=== PATIENT | female | born 1990 | race Caucasian/White ===

== ENCOUNTER 2016-08-20 01:32 | Emergency (ER) | payer OTHER ==
[~2016-08-20] VITALS: Ht 157.5 cm; Wt 71.4 kg
[2016-08-20 01:35] VITALS: BP 116/71; PULSE 96; RESP 16; O2SAT 97
--- NOTE | 2016-08-20 02:11 | ED.REPORT ---
HPI-Dyspnea / Wheezing Date of Service Aug 20, 2016 ED Provider: Dr. Cooley Pt is a 25 y/o 36.4 wk female presenting to the ED c/o mostly dry cough onset today. She c/o associated mild inaudible wheezing, SOB, mild sore throat. She has chronic nasal congestion caused by a likely deviated septum but otherwise has no history of respiratory diseases. She denies fever, chills, N/V/ D, respiratory distress. Nursing Notes Stated Complaint: COUGH, SHORT OF BREATH Chief Complaint: Respiratory Complaints Nursing Notes Reviewed: Yes Allergies: Coded Allergies: No Known Allergies (Unverified , 08/20/16) General Time Seen by MD: 02:10 Chief Complaint Shortness of breath Hx Obtained From: Patient Arrived By: Walk-in Onset Occurred: 13 - 16 hours ago Symptom Duration: Since onset Severity: Current: No pain currently Severity: Maximum: No pain Similar Sx Previous: No Risk Factors PE Risk Stratification Risk factors reviewed PERC Rule Pretest under 15%, All PERC criteria "No" Well's Criteria for PE Well's PE Score: 0-2 pts (low risk 3.6%) Past Medical History Past Medical History None reported Past Surgical History None reported Smoking History Unknown if Ever Smoker Social History Alcohol Use: Denies alcohol use Drug Use: Denies drug use Ambulatory Status Independent Review of Systems Constitutional: Denies: Chills, Fever Respiratory: Reports: Non-productive cough, Shortness of breath, Wheezing Cardiovascular: Denies: Chest pain Complete sys rev & neg: except as marked. GI: Denies: Abdominal pain, Diarrhea, Nausea, Vomiting Female: Reports: Physical Exam Initial Vital Signs Vital Signs (First) Date Time Temp Pulse Resp B/P Pulse Ox O2 Delivery O2 Flow Rate FiO2 08/20/16 01:35 36.1 96 16 116/71 97 Room Air Initial VS: Reviewed, Vital signs normal Head / Eyes: Atraumatic, Normocephalic, PERRL ENT: Mucous membranes moist, Conjunctiva normal, No scleral icterus Neurologic: Alert, Oriented, Nonfocal Psychiatric: Mood/affect normal, Behavior normal, Normal thought content General/Constitutional: Awake, Alert, No acute distress, Cooperative, Not toxic appearing Neck: Atraumatic, Supple, No meningismus, Full range of motion Respiratory / Chest: Atraumatic, Breath sounds NL, Breath sounds = bilat, No respiratory distress, No rales, No rhonchi, No wheezing, No retractions, No stridor, No chest tenderness, No chest wall deformity, No crepitus Cardiovascular: Heart rate NL, Regular rhythm, Heart sounds NL, No gallop, No murmurs, No rubs, Cap refill not delayed, Peripheral circulation NL Abdomen: Atraumatic, Soft Gravid - 3rd trimester Skin: Atraumatic, Color NL, Warm, Dry Cystic acne on chin Interpretation & Diagnostics Lab Results Interpretation Test 08/20/16 02:00 Hold Urine Received (Received) Re-Eval/Medical Decision Med Decision/Clinical Course 25-year-old female at 36.4 weeks in an uncomplicated presents with some dyspnea and a feeling of tightness. No evidence of more serious bacterial illness. She is not hypoxic and not tachycardic. No wheezes are heard. There are no focal changes and breath sounds. Doubt PE or pneumonia. She was discharged home with a diagnosis of viral upper respiratory infection. Re-Evaluation/Progress : Time of Eval: 02:46 Re-Evaluation/Progress Note: Pt rechecked. Informed pt of plan for treatment. Pt understands and agrees with plan for treatment. F/U instructions and RTER warnings given. All questions addressed. Counseled Regarding: Diagnosis, Need for follow-up, When/why to return to ED Discharge & Departure Impression: Primary Impression: URI (upper respiratory infection) URI type: unspecified URI Qualified Code: J06.9 - Acute upper respiratory infection, unspecified Additional Impression: Weeks of gestation: 36 weeks Qualified Code: Z3A.36 - 36 weeks gestation of Disposition: Home Discharge Condition All VS Reviewed: Yes Condition: Stable Patient Instructions: Upper Respiratory Infection (ED) Additional Instructions: This appears to be of viral respiratory infection. No evidence of a bacterial infection requiring antibiotic treatment. No evidence of asthma-type symptoms requiring an inhaler. Use Tylenol but avoid other [id number] cold preparations. Referrals: Pelon Beltre ND Attestation Portions of this note were transcribed by Marky Whitley. I, Dr. Cooley personally performed the history, physical exam and medical decision-making; I reviewed and confirmed the accuracy of the information in the transcribed note. Signed by Lala Ang, 08/20/16 - [id number] copies to: Pelon Beltre ND, Howard L MD Aug 20, 2016 02:11 MARKY WHITLEY Aug 20, 2016 02:17
== END 2016-08-20 03:30 | disposition home or self-care (01) ==
LOC: SED 01:32
DX: O99.513 Diseases of the respiratory system complicating pregnancy, third trimester (principal); J06.9 Acute upper respiratory infection, unspecified; J34.89 Other specified disorders of nose and nasal sinuses; Z3A.36 36 weeks gestation of pregnancy

== ENCOUNTER 2016-08-20 15:15 | Emergency (ER) | payer OTHER ==
[~2016-08-20] VITALS: Ht 157.5 cm; Wt 71.4 kg
[2016-08-20 15:17] VITALS: BP 120/80; PULSE 117; RESP 16; O2SAT 99
== END 2016-08-20 15:36 | disposition left against medical advice (07) ==
LOC: SED 15:15
DX: R05 Cough (principal); Z53.21 Procedure and treatment not carried out due to patient leaving prior to being seen by health care provider

== ENCOUNTER 2016-09-12 08:55 | Inpatient (IN) | payer OTHER ==
[~2016-09-12] VITALS: Ht 157.5 cm; Wt 71.2 kg
[2016-09-12] MEDS ORDERED: Lactated Ringer's 1,000 ML IV PRN ×2 (09:16→12:42)
[2016-09-12] MEDS ORDERED: Sodium Chloride LOK Flush 10 mL Syringe IVFLUSH PRN (09:20)
[2016-09-12] MEDS ORDERED: Carboprost 250 mCg/mL Inj IM PRN ×2 (09:20→17:25)
[2016-09-12] MEDS ORDERED: Oxytocin 30 Units/500 mL LR 30 UNITS in IV Premix 1 EACH IV PRN (09:20)
[2016-09-12] MEDS ORDERED: Hemorrhage Kit, Post Partum XX ONE ×3 (09:20→17:25)
[2016-09-12] MEDS ORDERED: Oxytocin 10 Unit/mL Inj IM PRN ×2 (09:20→17:25)
[2016-09-12] MEDS ORDERED: Methylergonovine 0.2 mg/mL Inj IM PRN ×2 (09:20→17:25)
[2016-09-12] MEDS ORDERED: Lactated Ringer's 500 ML IV ONE (09:24)
[2016-09-12] MEDS ORDERED: Lactated Ringer's 1,000 ML IV SCH ×2 (09:24→17:24)
[2016-09-12] MEDS ORDERED: EPHEDrine Sulfate 50 mg/mL Inj IVPUSH PRN (09:25)
[2016-09-12] MEDS ORDERED: fentaNYL 2 mCg/mL-Bupiv 0.125% 100 ML EPIDURAL SCH (09:25)
[2016-09-12] MEDS ORDERED: Atropine 1 mg/10 mL (Code) Syringe IVPUSH PRN (09:25)
[2016-09-12 09:31] LABS: Mean Corpuscular Hemoglobin 26.4 pg (27.0-35.0); Mean Corpuscular Volume 81.9 fL (81-100)
--- NOTE | 2016-09-12 11:48 | PCM.HPANE ---
Patient Data Date of Service: Sep 12, 2016 Surgeon Admitting Provider:Lacho Nagy MD Attending Provider:Lacho Nagy MD Primary Care Physician:Pelon Beltre ND Other Provider: Reason for Visit Term Early Labor TERM EARLY LABOR Ht/WT & BMI Height (Centimeters): 157 Weight (Kilograms): 71.2 Body Mass Index 28.7 Allergies Coded Allergies: No Known Allergies (Unverified , 08/20/16) Diabetes History Hx Diabetes?: No MRSA MRSA: No Medications Hypertension Medication: No Home Meds Incl Beta Tiffanie: No History History of ENT Problems?: No Hx of Heart Problems?: No Cardiovascular History: Denies:: Congestive Heart Failure Hypertension Hx of Respiratory Problem?: No Respiratory History: Denies:: Tuberculosis Hx Neurologic Problems?: No Hx of GI Problems?: No Hx of Problems?: No Female Hx: Positive for:: Currently Hx Musculoskeletal Problems?: No Hx of Psycho/Social Problems?: No Hx Surgeries?: No Hx Diabetes: No Hx Alcohol Use: NoHx Substance Use: No Smoking Status: Unknown if Ever Smoker Stop/Bang LEORA Risk Assessment: Low Risk, <3 Yes Risk Assessment Category Category 1A: Patient has history of documented sleep apnea, and HAS NOT received any narcotic, sedative or anesthesia administration during this stay. Category 1B: Patient has history of documented sleep apnea, and HAS received any narcotic , sedative or anesthesia administration during this stay Category 2: Patient has SUSPECTED Obstructive Sleep Apnea, and HAS received any narcotic , sedative or anesthesia administration during this stay. Category 3: Patient has SUSPECTED Obstructive Sleep Apnea and HAS NOT received narcotic, sedative or anesthesia administration during this stay. Category 4: Outpatient in Procedural Areas with known sleep apnea or who screen positive for High Risk via the STOP/BANG questionnaire. Exam Exam General Appearance: Alert, Oriented X3, Cooperative HEENT/AIRWAY: Neck Movement Lungs: Normal Air Movement Heart: Other (tachycardic) Meds/Labs/Diagnostics Labs Test 09/12/16 09:20 White Blood Count 12.4th/mm3 (3.8-10.1) Red Blood Count 4.25mil/mm3 (3.90-5.20) Hemoglobin 11.2g/dL (12.0-15.6) Hematocrit 34.8% (35.0-46.0) Mean Corpuscular Volume 81.9fL (81-100) Mean Corpuscular Hemoglobin 26.4pg (27.0-35.0) Mean Corpuscular Hemoglobin Concent 32.2% (32.0-37.0) Red Cell Distribution Width 14.6% (12.3-15.4) Platelet Count 345bil/L (150-400) Plan Impression Patient chart reviewed, patient interviewed and anesthestic plan with risks, benefits, and alternatives discussed, and informed consent obtained. NPO Status: OB Protocol ASA Physical Status: ASA1 Normal Healthy Anesthetic Plan: Epidural Bene/Risks/Altern/Consents: Yes HP Complete Prior to Induction: Yes Daniel Vogt MD Sep 12, 2016 09:41
[2016-09-12] MEDS: Ondansetron 2 mg/mL 2 mL Inj IVPUSH PRN ×2 (11:53→16:16)
[2016-09-12] MEDS ORDERED: oxyCODONE-Acetamin 5-325 mg Tablet PO PRN (17:25)
--- NOTE | 2016-09-12 18:08 | PCM.ANEP1 ---
Post Anesthesia Phase 1 PACU Phase 1 Assessment Date of Service: Sep 12, 2016 Vital Signs See OB documentation Anesthetic Administered: Epidural Level of Alertness: Awake, talking LEIGH's with Equal Strength: Yes Pain: No Nausea or Vomiting: No Oxygen Delivery: Room Air Lungs: Normal Air Movement Daniel Vogt MD Sep 12, 2016 18:08
--- NOTE | 2016-09-12 18:09 | PCM.ANEP2 ---
Post Anesthesia Evaluation ASA/CMS Post Anesthesia Date of Service: Sep 12, 2016 VS in Patient's Normal Range?: Yes Resp Stable; Airway Patent?: Yes CV Function & Hydration Stable: Yes Mental Status Recovered?: Yes Pain control Satisfactory?: Yes N/V Control Satisfactory?: Yes Daniel Vogt MD Sep 12, 2016 18:09
[2016-09-12] MEDS: Witch Hazel-Glycerin Pads TOPICAL PRN (18:40)
[2016-09-12] MEDS: LANOlin HPA 7 Gm Ointment TOPICAL PRN (18:41)
[2016-09-12] MEDS: Benzocaine (Dermoplast) 20% 60 Gm Spray TOPICAL PRN (18:41)
--- NOTE | 2016-09-12 21:01 | OP ---
[address] [address] OPERATIVE REPORT PATIENT: NENITA FUNES : 1990 MR#: [id number] ADMIT: 09/12/2016 JOB ID: [id number] DATE OF SURGERY: 09/12/2016 SURGEON: Lacho Nagy MD PREOPERATIVE DIAGNOSIS(ES): POSTOPERATIVE DIAGNOSIS(ES): DELIVERY NOTE: Please see my H and P for her presenting circumstances. Her labor progressed nicely and comfortably after her epidural was placed. heart tracing remained nice and reactive without concern. She eventually was noted to be completely dilated at 1634, and so I was called to attend the delivery. Mom started pushing at approximately 4:52 with the baby's head in an occiput anterior position with excellent epidural anesthesia. The baby's head delivered, and then there was no nuchal cord noted. Then the rest of the baby delivery was completed at 4:57 over an intact perineum. The baby was placed on mom's tummy, and approximately 60 seconds was waited, and then the cord was clamped and cut. The placenta delivered spontaneously and intact at 5:01. Examination of the cervix revealed no lacerations, and it was not actively bleeding. Her perineum showed no evidence of any significant lacerations at all. Estimated blood loss was 250 cc. There were no complications. Delivery was of a baby boy with Apgars of 8 and 9. Weight is still pending. The patient is doing very well, and we will order routine care.
--- NOTE | 2016-09-12 23:00 | HP ---
[address] [address] HISTORY AND PHYSICAL PATIENT: NENITA FUNES : 1990 MR#: [id number] ADMIT: 09/12/2016 JOB ID: [id number] CHIEF COMPLAINT: I broke my water. HISTORY OF PRESENT ILLNESS: This is a 25-year-old obstetrical patient who presents to labor and delivery complaining that she broke her water at six this morning and started having contractions shortly after that. She is an obstetrical patient at [facility] but decided to come up here for her labor and delivery because we provide epidural anesthesia and she would like. I was contacted because I was the next doctor on the no doc call list and I have come and interviewed the patient, and am overseeing her labor care. She is a 25-year-old, 2, para 1, with EDC of September 13, 2016, based on last menstrual period of December 08, 2015. This was verified with early ultrasound and again at 20 weeks confirmed. She had been doing reasonably well with no signs of labor at all until this morning when she suddenly began to feel liquid coming from her vagina that was clear, and shortly after that she started having contractions so she came in to be evaluated. heart tracing is reactive and she is found to be 4 cm, 100% effaced, -3 station with the baby in a vertex position ada about every 3-4 minutes or so, and so she was admitted for expectant management. PAST MEDICAL HISTORY: Her course has been unremarkable at the [facility]. Her maternal blood type is A-negative. She did get a RhoGAM shot on August 22. Her antibody screen was negative initially, as well as negative at 28 weeks. Hematocrit was normal at 40.4. Pap was normal. GC and Chlamydia were negative. She is rubella immune. RPR was nonreactive. Hepatitis B and HIV were negative. Diabetic screen at 28 weeks was 115. Her group B strep was negative at 37 weeks. course has only been complicated by inadequate weight gain. She has gained about 15 pounds. PAST OBSTETRICAL HISTORY: Patient had a spontaneous vaginal delivery about two and half years ago at 38 weeks, and that was complicated with -induced hypertension for which she was induced at 38 weeks, and ended up having a 7 pound 10 ounce baby girl without any significant problems. This is not seeing any significant hypertension or evidence of preeclampsia. PAST MEDICAL HISTORY: Significant for depression in the past with some sort of suicide attempt in 2010. The patient denies ever being on medications for depression. She also has history of some sort of atopic dermatitis and seasonal allergies. Otherwise, her medical history is unremarkable. SURGICAL HISTORY: Negative. FAMILY HISTORY: Noncontributory. ALLERGIES: The patient has no known drug allergies. CURRENT MEDICATIONS: Include vitamins, otherwise, on no regular medications at the present time. SOCIAL HISTORY: Patient lives in [place] with her 2-year-old daughter with some friends, as well as her significant other. 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 She denies history of smoking and denies alcohol use or drug use. REVIEW OF SYSTEMS: The patient recently has had sinusitis and is still congested and coughing, although has had no fevers. She has just finished a course of amoxicillin a couple of days ago. Denies any chest pain, palpitations or shortness of breath. No abdominal pain, other than the contractions. No swelling in her feet. She has felt the baby moving every day. No blurry vision or significant headaches. OBJECTIVE: Well-developed, well-nourished woman in no apparent distress who is very comfortable now with an epidural in place. Her vital signs are normal. Lungs are clear to auscultation bilaterally with good air movement. No wheezes are heard. Heart is regular rate and rhythm. No significant murmurs heard. Abdomen is gravid, otherwise benign. She has normoactive bowel sounds. Extremities: No cyanosis, clubbing or edema. Most recent cervical exam about an hour ago found her to be 6-7 cm, 100% effaced, -3 station, and heart tracing remains reactive with contractions every 4-5 minutes that are regular. ASSESSMENT AND PLAN: Intrauterine at term, in labor with premature rupture of membranes that has resulted in her going into labor. She is being admitted for routine expectant management. She asked for an epidural and this was placed successfully and she is very comfortable at the present time. We will provide routine labor management. Will plan on routine labor management. I discussed routine expectant management issues and procedures. Also, discussed potential complications and the usual obstetrical procedures to address them, but also the possible need for surgical care if a section becomes needed. I also discussed the possible need for assistance with vacuum extraction and its associated potential complications. All of her questions were answered, she expressed understanding of these issues, and is willing to proceed.
[2016-09-13 06:51] LABS: Mean Corpuscular Hemoglobin 26.7 pg (27.0-35.0); Mean Corpuscular Volume 83.2 fL (81-100)
[2016-09-13] MEDS: Sodium Chloride LOK Flush 10 mL Syringe IVFLUSH SCH ×2 (08:30→16:30)
--- NOTE | 2016-09-13 09:21 | NUR ---
received social work referral. advised DOOR ATTENDANT.
--- NOTE | 2016-09-13 12:19 | NUR ---
Social Work Note: Initial Assessment D/A; Pt is a 25 year old female who gave to BB on 09/12/2016. Pt reported that she currently lives with friends and her 2 year old daughter in [place] and is planning to return home with BB upon discharge. Pt indicated that SHAINA is Dayo Wolff. Pt explained that SHAINA suffered a TBI about a year ago, which left him with some cognitive and memory deficits. SHAINA is reportedly on disability and is living with his mother who is his primary insulation supervisor. Pt reported that SHAINA is supportive and willing to assist in any way he can in caring for BB. Pt indicated that she is currently enrolled in [facility] and is receiving food stamps and TANF through [facility]. BB is Pt's second child and she is reporting no previous CPS involvement. Pt reported no history of DV or CD. Pt explained that she has a history of depression and anxiety which have been well controlled though outpatient mental health treatment at [facility]. Pt explained that she recently transferred to [facility] [place] for mental health treatment and is not currently taking any psychiatric medications. Pt reported that she has no prior history of post depression but has spoken with her VOICE COACH and has a plan in place for treatment if it should arise. Pt indicated that she has everything she will need to safely care for BB at home including a bassinet and a car seat. Pt explained that she has a large group of family and friends as well as supportive coworkers that are all available and willing to assist in caring for BB or helping Pt as needed. Pt is reporting no additional needs prior to discharge at this time. P: Pt reports a strong support network of friends, family and coworkers. Pt is enrolled in appropriate social problems specialist. Pt has a history of mental illness and is enrolled in appropriate treatment for that. staff counsel reported that Pt and family have been appropriate and affectionate with BB while in the hospital. staff counsel reported no additional concerns. SOFTWARE ENGINEERING SUPERVISOR conferred with staff counsel and it was decided that no CPS report would be needed at this time. Pt to be discharged once cleared by C . Samantha Escalona, ISAIAS, AAC
--- NOTE | 2016-09-13 13:24 | PCM.DIOB ---
Obstetrical Disch Instruction Date of Service: Sep 13, 2016 Dates of Hospitalization Date of Hospital Admission Sep 12, 2016 at 09:11 Providers Admitting Physician: Lacho Nagy MD Primary Care Physician: Pelon Beltre ND Attending Physician: Lacho Nagy MD Discharge Diagnosis Discharge Diagnosis s/p at Term Problems: Diet Discharge Diet: No restrictions Activity Discharge Activity-General: Pelvic Rest for 6 weeks, Try not to overdue, Be up and about, Balance rest and activity Dressing and Incisional Care Hygiene: May shower Follow Up Plan Follow Up Plan f/u with OB provider in 6 weeks and as needed. Follow-up appointment: Weeks (six) Call your provider for: Fever or Chills, Shortness of breath, Heavy vaginal bleeding, Heavy bleeding, Epigastric pain, Excessive constipation, Vaginal discomfort, Red painful breasts Attending Statement f/u with OB provider in 6 weeks and as needed. Lacho Nagy MD Sep 13, 2016 13:24
[2016-09-13] MEDS ORDERED: IBUP800T28 PO (13:26)
[2016-09-13] MEDS ORDERED: DOCU-41 PO (13:26)
[2016-09-13] MEDS: Benzocaine (Dermoplast) 20% 60 Gm Spray TOPICAL PRN (16:02)
[2016-09-13] MEDS: Witch Hazel-Glycerin Pads TOPICAL PRN (16:03)
[2016-09-13 19:26] VITALS: BP 118/63; PULSE 93; RESP 16
[2016-09-13] MEDS: LANOlin HPA 7 Gm Ointment TOPICAL PRN (19:48)
--- NOTE | 2016-09-14 02:05 | DIS ---
[address] [address] DISCHARGE SUMMARY PATIENT: NENITA FUNES : 1990 MR#: [id number] ADMIT: 09/12/2016 JOB ID: [id number] DIS: 09/13/2016 DISCHARGE DIAGNOSIS: Spontaneous vaginal delivery at term. HISTORY AND PHYSICAL: Please see my admission H and P for details. CONSULTATIONS: None. PROCEDURES: The patient had a spontaneous vaginal delivery on the afternoon of September 12, without problems. See my delivery note for details. HOSPITAL COURSE: The patient was admitted in active labor early on the morning of September 12, and requested an epidural for pain management which was placed with excellent results. Her labor progressed nicely and fairly rapidly to completely dilated and then pushed and successfully had a baby boy without any significant problems. Please see my admission history and physical as well as delivery note for full details. Her course also has been likewise unremarkable. Currently, she has no acute complaints at all and reports decreasing lochia and only minor perineal discomfort, and also mild breast discomfort from . She does report some troubles with constipation. She does not report any significant pain, and ibuprofen seems to be sufficient to manage this problem. ASSESSMENT/PLAN: Status post spontaneous vaginal delivery at term. The patient is doing well and is stable. Will plan on discharging her home today with instructions to follow up with her primary care provider/obstetrical provider in six weeks, otherwise as needed. She will be discharged with 60 tablets of ibuprofen 800 mg to use as needed for discomfort, as well as docusate sodium 100 mg tablets to use one twice a day as needed for constipation.
== END 2016-09-13 22:16 | disposition home or self-care (01) | DRG 775 ==
LOC: FBCO 08:55 → UNDOADMIN 09:11 → FBC 09:11
PROVIDERS: ADMIT Family Medicine; ATTEND Family Medicine
PROC: 10E0XZZ Delivery of Products of Conception, External Approach (ICD-10-PCS; principal; 2016-09-12)
DX: O42.02 Full-term premature rupture of membranes, onset of labor within 24 hours of rupture (principal); Z37.0 Single live birth; Z3A.39 39 weeks gestation of pregnancy

== ENCOUNTER 2016-11-28 22:37 | Emergency (ER) | payer OTHER ==
[~2016-11-28] VITALS: Ht 157.5 cm; Wt 63.6 kg
[~2016-11-28 22:37] MED LIST: DOCU-41 PO; IBUP800T28 PO
[2016-11-28 22:45] VITALS: BP 105/63; PULSE 80; RESP 16; O2SAT 100
[2016-11-28 23:44] LABS: APPEARANCE,URINE CLEAR (CLEAR,HAZY); COLOR,URINE YELLOW (YELLOW); OCCULT BLOOD,URINE MODERATE (NEGATIVE); PH,URINE 5.5 (5.0-8.0); UROBILINOGEN,URINE NORMAL (NORMAL)
--- NOTE | 2016-11-29 01:28 | ED.REPORT ---
HPI- Female Date of Service November 29, 2016 ED Provider: David Ramirez MD A 26 year old female with a history of vaginal delivery in 08/2016 presents to the ED complaining of vaginal irritation. The pt began experiencing dysuria and urinary frequency yesterday and noticed a "sore, itchy bump" just inside the edge of her vagina today. She denies vaginal discharge and states that she has not experienced similar symptoms before. Nursing Notes Stated Complaint: VAGINAL IRRITATION Chief Complaint: Female Abdominal Pain Nursing Notes Reviewed: Yes Allergies: Coded Allergies: No Known Allergies (Unverified , 11/28/16) Scheduled PRN Docusate Sodium (Colace) 100 Mg Capsule 100 MG PO BID PRN PRN as needed Ibuprofen (Ibuprofen) 800 Mg Tablet 800 MG PO TID PRN PRN For Pain General Time Seen by MD: 00:58 Chief Complaint Other (Vaginal irritation) Hx Obtained From: Patient Arrived By: Walk-in Sudden in Onset?: No Onset Occurred: 2 days ago Symptom Duration: Since onset Recent Healthcare: Recent doctor visit, Recent hospitalization Similar Sx Previous: No Past Medical History Past Medical History vaginal delivery 08/2016 Past Surgical History None reported Smoking History Unknown if Ever Smoker Social History Alcohol Use: Denies alcohol use Drug Use: Denies drug use Ambulatory Status Independent Review of Systems Review of Systems Note: itching "bump" within vagina Constitutional: Denies: Fever Female: Reports: Dysuria, Urinary frequency, Denies: Vaginal discharge Musculoskeletal: Denies: Back pain, Neck pain Complete sys rev & neg: except as marked. Physical Exam Initial Vital Signs Vital Signs (First) Date Time Temp Pulse Resp B/P Pulse Ox O2 Delivery O2 Flow Rate FiO2 11/28/16 22:45 36.6 80 16 105/63 100 Room Air Initial VS: Reviewed Female Genitourinary: Admission Discharge Rn present, No discharge small, soft mass at midline, anterior to vagina at the urethral meatus tenderness associated with mass General/Constitutional: Awake, Alert Respiratory / Chest: Atraumatic, Breath sounds NL, Breath sounds = bilat, No respiratory distress Cardiovascular: Heart rate NL, Regular rhythm, Heart sounds NL Abdomen: Atraumatic, Soft, Non-tender Back: Atraumatic, Full range of motion Skin: Atraumatic, Color NL, No rash, Warm, Dry Head / Eyes: Atraumatic, Normocephalic, PERRL, EOMI ENT: Atraumatic, Airway patent, Mucous membranes moist Neck: Atraumatic, Supple, Full range of motion Upper Extremity / MS: Atraumatic, Full range of motion Lower Extremity / Pelvis / MS: Atraumatic, Full range of motion Neurologic: Oriented X3, Speech NL, No motor deficits, No sensory deficits Psychiatric: Affect NL, Mood NL Interpretation & Diagnostics Lab Results Interpretation Test 11/28/16 23:00 Urine Color Yellow (YELLOW) Urine Appearance Clear (CLEAR,HAZY) Urine pH 5.5 (5.0-8.0) Urine Specific [place] 1.028 (1.003-1.035) Urine Protein Negativemg/dL (NEG,TRACE) Urine Glucose (UA) Negativemg/dL (NEGATIVE) Urine Ketones Tracemg/dL (NEGATIVE) Urine Occult Blood Moderate (NEGATIVE) Urine Nitrite Negative (NEGATIVE) Urine Bilirubin Negative (NEGATIVE) Urine Urobilinogen Normalmg/dL (NORMAL) Urine Leukocyte Esterase 3 (NEGATIVE) Urine RBC 0-2/hpf (0-2) Urine WBC O/hpf (0-5) Urine Epithelial Cells None/hpf (NONE-MOD) Urine Crystals None seen (NONE SEEN) Urine Bacteria None/hpf (NONE-FEW) Urine Hyaline Casts None/lpf (NONE) Urine Granular Casts None seen (NONE SEEN) Urine Waxy Casts None seen (NONE SEEN) Urine Red Blood Cell Casts None seen (NONE SEEN) Urine White Blood Cell Casts None seen (NONE SEEN) Urine Mucus None seen (None Seen) Urine Trichomonas None seen (NONE SEEN) Urine Yeast None (NONE SEEN) Urinalysis Comment None Urine Culture Reflexed Not indicated Re-Eval/Medical Decision Source of Hx: Old records Re-Evaluation/Progress : Time of Eval: 01:13 Patient Status: Condition improved Re-Evaluation/Progress Note: Pt rechecked and pelvic exam is performed. The diagnosis and plan for discharge are discussed. The pt understands and agrees with the plan. All questions are addressed at this time. Consultation : Referral / Consult Name: Walter Becerra MD Call Returned at: 01:21 Schedule Planning Manager: Will see in office, Agrees with eval, Agrees with plan Note: Spoke with Dr. Becerra OBCAROLYNE, regarding pt's case. Dr. Becerra agrees to see the pt in the office tomorrow. Counseled Regarding: Diagnosis, Lab results, Need for follow-up, When/why to return to ED Discharge & Departure Impression: Primary Impression: Mass of urethra Disposition: Home Discharge Condition All VS Reviewed: Yes Condition: Stable Additional Instructions: On exam tonight we note some tissue protruding from the opening to the urethra, (exit for urine). It is not clear what this is. We would like you to see a urologist tomorrow. Call the office first thing in the morning. Referrals: Walter Becerra MD Attestation Portions of this note were transcribed by Rogelio Rondon. I, Dr. Ramirez personally performed the history, physical exam and medical decision-making; I reviewed and confirmed the accuracy of the information in the transcribed note. Signed by: Lala Vazquez, 11/29/16 and 0202. copies to: Walter Becerra MD, Donald L MD November 29, 2016 01:28 ROGELIO RONDON November 29, 2016 01:39 reviewed and confirmed the accuracy of the information in the transcribed note. Signed by: Lala Vazquez, 11/29/16 and 0132. copies to: Walter Becerra MD, Donald L MD November 29, 2016 01:28 ROGELIO RONDON November 29, 2016 01:39
[2016-11-29 01:40] VITALS: BP 110/70; PULSE 84; RESP 16; O2SAT 97
[2016-11-30] MEDS ORDERED: PHEN-773 PO (21:45)
== END 2016-11-29 01:38 | disposition home or self-care (01) ==
LOC: SED 22:37
DX: N36.9 Urethral disorder, unspecified (principal)

== ENCOUNTER 2016-11-30 19:04 | Emergency (ER) | payer OTHER ==
[~2016-11-30] VITALS: Ht 157.5 cm; Wt 64.5 kg
[2016-11-30 19:13] VITALS: BP 111/71; PULSE 91; RESP 16; O2SAT 98
--- NOTE | 2016-11-30 21:35 | ED.REPORT ---
HPI- Female Date of Service November 30, 2016 ED Provider: Woo Manzanares MD Patient is a 26 year old female who presents to the ED complaining of a "mass in her urethra". Associated symptoms include dysuria onset 4 days ago. She denies abnormal vaginal discharge, fever, chills, or any other symptoms. She was seen in the department for the same symptoms 2 days ago and was referred to Urology. She has an appointment scheduled for Monday. Her last period was over a year ago. She gave 3 mo ago and is breast feeding. She came back today because she is able to feel a bump by her urethra and it is bothering her. Nursing Notes Stated Complaint: BUMP INSIDE VAGINAL AREA Chief Complaint: Female Abdominal Pain Nursing Notes Reviewed: Yes Allergies: Coded Allergies: No Known Allergies (Unverified , 11/30/16) Scheduled PRN Docusate Sodium (Colace) 100 Mg Capsule 100 MG PO BID PRN PRN as needed Ibuprofen (Ibuprofen) 800 Mg Tablet 800 MG PO TID PRN PRN For Pain Phenazopyridine (Phenazopyridine) 100 Mg Tablet 100 MG PO TID PRN PRN For Pain General Time Seen by MD: 20:01 Chief Complaint Other (Urethral mass) Hx Obtained From: Patient Arrived By: Walk-in Sudden in Onset?: Yes Onset Occurred: 4 days ago Recent Healthcare: Recent doctor visit Past Medical History Past Medical History vaginal delivery 08/2016 Past Surgical History None reported Smoking History Unknown if Ever Smoker Social History Alcohol Use: Denies alcohol use Drug Use: Denies drug use Ambulatory Status Independent Review of Systems Review of Systems Note: +urethral mass Constitutional: Denies: Chills, Fever Female: Reports: Dysuria, Denies: Vaginal discharge Complete sys rev & neg: except as marked. Physical Exam Initial Vital Signs Vital Signs (First) Date Time Temp Pulse Resp B/P Pulse Ox O2 Delivery O2 Flow Rate FiO2 11/30/16 19:13 36.6 91 16 111/71 98 Room Air Initial VS: Reviewed General/Constitutional: Well-developed, Well-nourished Head / Eyes: Atraumatic, Normocephalic Neck: Supple, Full range of motion Respiratory: Breath sounds normal, Clear to auscultation, No respiratory distress Cardiovascular: Regular rate & rhythm, Heart sounds normal, Intact distal pulses Abdomen / GI: Soft, Non-tender, No guarding, No rebound, No distention Skin: Warm, Dry Neurologic: Alert, Oriented, Nonfocal Psychiatric: Mood/affect normal, Behavior normal, Normal thought content Female Genitourinary: Commissary Steward present Cervix nL Erythematous outgrowth from urethra that is 5x5 mm and looks like granulation tissue. Cervix closed Scant bright red blood at cervix No abnormal discharge. Interpretation & Diagnostics Lab Results Interpretation Test 11/30/16 21:27 Urine Color Yellow (YELLOW) Urine Appearance Clear (CLEAR,HAZY) Urine pH 6.0 (5.0-8.0) Urine Specific [place] 1.030 (1.003-1.035) Urine Protein Negativemg/dL (NEG,TRACE) Urine Glucose (UA) Negativemg/dL (NEGATIVE) Urine Ketones Negativemg/dL (NEGATIVE) Urine Occult Blood Small (NEGATIVE) Urine Nitrite Negative (NEGATIVE) Urine Bilirubin Negative (NEGATIVE) Urine Urobilinogen Normalmg/dL (NORMAL) Urine Leukocyte Esterase Negative (NEGATIVE) Urine RBC 0-2/hpf (0-2) Urine WBC 0-5/hpf (0-5) Urine Epithelial Cells None/hpf (NONE-MOD) Urine Crystals None seen (NONE SEEN) Urine Bacteria Few/hpf (NONE-FEW) Urine Hyaline Casts None/lpf (NONE) Urine Granular Casts None seen (NONE SEEN) Urine Waxy Casts None seen (NONE SEEN) Urine Red Blood Cell Casts None seen (NONE SEEN) Urine White Blood Cell Casts None seen (NONE SEEN) Urine Mucus None seen (None Seen) Urine Trichomonas None seen (NONE SEEN) Urine Yeast None (NONE SEEN) Urinalysis Comment None Urine Culture Reflexed Not indicated Lab Results Interpretation: Urine preg negative Urine dip positive for blood, no sign of infection. Re-Eval/Medical Decision Med Decision/Clinical Course Patient is a 26 year old female who presents to the ED complaining of a "mass in her urethra". Associated symptoms include dysuria onset 4 days ago. She denies abnormal vaginal discharge, fever, chills, or any other symptoms. She was seen in the department for the same symptoms 2 days ago and was referred to Urology. She has an appointment scheduled for Monday. Her last period was over a year ago. She gave 3 mo ago and is breast feeding. She came back today because she is able to feel a bump by her urethra and it is bothering her. Here in the emergency department the patient is afebrile with stable vital signs. Pelvic examination is unremarkable without any findings suggestive of sexually transmitted infection or pelvic inflammatory disease. There is no evidence of Bartholin gland cyst. She does have a 5 mm x 5 mm erythematous all about her urethra that looks like granulation tissue. I have never seen anything quite like this before. Her urine shows no signs of urinary tract infection. She is able to void urine spontaneously. She has an appointment with urology in 2 days and at this time I do not feel that emergent urology evaluation is indicated. The cause of this growth is unclear to me. I discussed with the patient that I think a specialist would be of the most help and she is comfortable following up on Monday. Given that she does have some associated dysuria I have prescribed phenazopyridine with the hopes that this will provide a little bit of relief. Prior to discharge follow-up and return precautions were reviewed in detail with the patient who verbalized understanding and agreement with the plan. The patient was discharged in stable condition. Re-Evaluation/Progress : Time of Eval: 21:44 Re-Evaluation/Progress Note: Discussed plan for discharge with urology follow up. Patient understands and agrees with plan. All questions addressed at this time. Counseled Regarding: Diagnosis, Need for follow-up, When/why to return to ED Discharge & Departure Impression: Primary Impression: Mass of urethra Additional Impression: Dysuria Disposition: Home Discharge Condition All VS Reviewed: Yes Condition: Improved Additional Instructions: Thank you for seeking care at the emergency room. It is difficult for us to make definitive diagnoses in the ED but we believe that you are experiencing a mass on your urethra. Our primary goal today in the ED was to evaluate you for any life-threatening conditions. Your evaluation was reassuring. You will be discharged with a prescription for phenazopyridine to help reduce your pain with urination. Take Ibuprofen and Tylenol to treat your pain. You should follow-up with your primary doctor in the next week. Keep your Urology appointment on Monday. You should return to the ED immediately if you develop fevers, vomiting, increased pain, decreased urination, or any other concerning signs or symptoms. Thank you for letting us partake in your care today. Referrals: Pelon Beltre ND (PCP) Scribe Attestation Portions of this note were transcribed by Ariadne Ignacio. I, Dr. Manzanares personally performed the history, physical exam and medical decision-making; I reviewed and confirmed the accuracy of the information in the transcribed note. Signed by: Ariadne Ignacio 11/30/16, 7250 copies to: Pelon Beltre ND, Beck O MD November 30, 2016 21:35 ARIADNE IGNACIO November 30, 2016 21:56
[2016-11-30 21:38] LABS: APPEARANCE,URINE CLEAR (CLEAR,HAZY); COLOR,URINE YELLOW (YELLOW)
[2016-11-30 21:39] LABS: OCCULT BLOOD,URINE SMALL (NEGATIVE); UROBILINOGEN,URINE NORMAL (NORMAL)
[2016-11-30] MEDS ORDERED: PHEN-773 PO (21:45)
[2016-11-30 22:40] VITALS: BP 110/66; PULSE 89; RESP 16; O2SAT 99
== END 2016-11-30 22:28 | disposition home or self-care (01) ==
LOC: SED 19:04
DX: R22.2 Localized swelling, mass and lump, trunk (principal); R30.0 Dysuria